=== PATIENT | female | born 2000 ===

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

== ENCOUNTER 2022-01-24 21:42 | Outpatient (CLI) | payer OTHER ==
[~2022-01-24 21:42] MED LIST: CYCL5TAB PO
[2022-01-24 22:50] VITALS: BP 126/78
[2022-01-24 23:31] LABS: HEMOGLOBIN 11.7 g/dl (12.0-15.5); MEAN CORPUSCULAR HEMOGLOBIN 30.5 pg (27.0-33.0); MEAN CORPUSCULAR HGB CONC 34.4 g/dl (32.0-36.5); MEAN CORPUSCULAR VOLUME 88.5 fl (80.0-96.0); PLATELET COUNT, AUTOMATED 172 10^3/uL (150-450); RED BLOOD COUNT 3.84 10^6/uL (4.00-5.40); WHITE BLOOD COUNT 7.4 10^3/uL (4.0-10.0)
[2022-01-24 23:59] LABS: CREATININE,RANDOM URINE 46.9 MG/DL; TOTAL PROTEIN,RANDOM URINE 14.3 MG/DL (0.0-12.0)
[2022-01-25 00:01] LABS: ALBUMIN 2.8 GM/DL (3.2-5.2); ALT/SGPT 27 U/L (12-78); BILIRUBIN,TOTAL 0.2 MG/DL (0.2-1.0); BLOOD UREA NITROGEN 12 MG/DL (7-18); CALCIUM LEVEL 9.6 MG/DL (8.5-10.1); CARBON DIOXIDE LEVEL 23 MEQ/L (21-32); CHLORIDE LEVEL 105 MEQ/L (98-107); CREATININE FOR GFR 0.68 MG/DL (0.55-1.30); GLUCOSE, FASTING 90 MG/DL (70-100); POTASSIUM SERUM 3.8 MEQ/L (3.5-5.1); SODIUM LEVEL 137 MEQ/L (136-145); TOTAL PROTEIN 6.5 GM/DL (6.4-8.2)
[2022-01-25 00:02] VITALS: BP 132/68
== END 2022-01-25 01:25 | disposition home or self-care (01) ==
LOC: M LDO 21:42
PROVIDERS: ATTEND Obstetrics & Gynecology
DX: O26.893 Other specified pregnancy related conditions, third trimester (principal); R10.2 Pelvic and perineal pain; O34.219 Maternal care for unspecified type scar from previous cesarean delivery; Z87.59 Personal history of other complications of pregnancy, childbirth and the puerperium; Z3A.35 35 weeks gestation of pregnancy
CPT/HCPCS: 59025; 76815; 76819; 76820; 76857; 80053; 82570; 84156; 85027; G0463

== ENCOUNTER → 2022-02-08 | Outpatient (CLI) | payer OTHER ==
[~2022-02-08] MED LIST changes: +ACET500P3 PO; +ASPI81CH33 PO; +PRENTAB9 PO
== END ==
LOC: M RAD 09:09
PROVIDERS: ATTEND Obstetrics & Gynecology
DX: O36.8130 Decreased fetal movements, third trimester, not applicable or unspecified (principal); Z3A.38 38 weeks gestation of pregnancy

== ENCOUNTER → 2022-02-08 | Outpatient (CLI) | payer OTHER ==
[~2022-02-08] MED LIST changes: -ACET500P3 PO; -ASPI81CH33 PO; -PRENTAB9 PO
== END ==
LOC: M LDO 11:02
PROVIDERS: ATTEND Registered Nurse
DX: O47.1 False labor at or after 37 completed weeks of gestation (principal); Z3A.38 38 weeks gestation of pregnancy; O34.219 Maternal care for unspecified type scar from previous cesarean delivery; Z87.59 Personal history of other complications of pregnancy, childbirth and the puerperium
CPT/HCPCS: 59025; G0463

== ENCOUNTER 2022-02-15 07:53 | Inpatient (IN) | payer OTHER ==
[~2022-02-15] VITALS: Ht 167.6 cm; Wt 84.3 kg
[2022-02-15] VITALS (8 sets, daily range): BP systolic 109–121; BP diastolic 58–79
[2022-02-15] MEDS ORDERED: ACET500P3 PO (08:20)
[2022-02-15] MEDS ORDERED: PRENTAB9 PO (08:20)
[2022-02-15] MEDS ORDERED: ASPI81CH33 PO (08:20)
[2022-02-15] MEDS ORDERED: LR 1,000 ML IV ONE (09:00)
[2022-02-15] MEDS ORDERED: OXYTOCIN DRIP 30 UNITS in IV 1 EA IV PRN (10:55)
[2022-02-15] MEDS ORDERED: ceFAZolin SOD 2 GM in IV 1 EA IV ONE (11:25)
[2022-02-15] MEDS ORDERED: BICITRA 30ML SOLN UDC PO ONE (11:25)
[2022-02-15 12:14] LABS: HEMATOCRIT 39.3 % (36.0-47.0); HEMOGLOBIN 13.4 g/dl (12.0-15.5); MEAN CORPUSCULAR HEMOGLOBIN 30.3 pg (27.0-33.0); MEAN CORPUSCULAR HGB CONC 34.1 g/dl (32.0-36.5); MEAN CORPUSCULAR VOLUME 88.9 fl (80.0-96.0); PLATELET COUNT, AUTOMATED 175 10^3/uL (150-450); RED BLOOD COUNT 4.42 10^6/uL (4.00-5.40); WHITE BLOOD COUNT 7.6 10^3/uL (4.0-10.0)
[2022-02-15] MEDS ORDERED: BUPIVACAINE HCL 0.25% 10ML VIAL As Ordered ONE (13:10)
[2022-02-15] MEDS ORDERED: OXYTOCIN INJ 10 UNITS/ML VIAL (J2590) As Ordered ONE (13:18)
[2022-02-15] MEDS ORDERED: MORPHINE PRES-FREE INJ 10 MG/10 ML VIAL As Ordered ONE (13:18)
[2022-02-15] MEDS ORDERED: PHENYLephrine 500MCG 5ML (100MCG/ML) SYRINGE As Ordered ONE (13:18)
[2022-02-15 13:48] LABS: CORD GAS ABE V -1.3; CORD GAS HCO3 V 26.3 MEQ/L; CORD GAS O2 SAT V 55.3 %; CORD GAS PCO2 V 54.6 mmHg; CORD GAS PH V 7.301 UNITS; CORD GAS PO2 V 23.7 mmHg; CORD GAS SBC V 22.2 MEQ/L
[2022-02-15] MEDS ORDERED: KETOROLAC 60MG 2ML VIAL As Ordered ONE (13:59)
[2022-02-15] MEDS ORDERED: ONDANSETRON 4MG 2ML VIAL As Ordered ONE (13:59)
[2022-02-15] MEDS ORDERED: MEPERIDINE INJ 25 MG/ML VIAL (J2175) IV PRN (14:25)
[2022-02-15] MEDS ORDERED: diphenhydrAMINE 50MG/ML VIAL (J1200) IV PRN (14:25)
[2022-02-15] MEDS ORDERED: **NOTE PATIENT COMMENT** MISC XX SCH (14:25)
[2022-02-15] MEDS ORDERED: fentaNYL 100 MCG/2 ML INJECTION IV PRN (14:25)
[2022-02-15] MEDS: SLF 3 ML SYR IV SCH ×2 (14:25→22:25)
[2022-02-15] MEDS ORDERED: NALOXONE INJ 0.4MG/1ML VIAL (J2310 PER 1MG) IV PRN ×2 (14:25)
[2022-02-15] MEDS ORDERED: ONDANSETRON 4MG 2ML VIAL IV PRN ×2 (14:25→14:35)
[2022-02-15] MEDS ORDERED: METOCLOPRAMIDE INJ 10MG/2ML VIAL (J2765 PER 1) IV PRN (14:25)
[2022-02-15] MEDS ORDERED: HYDROMORPHONE HCL 0.5 MG/ 0.5 ML SYRINGE (J1170 PER 1) IV PRN (14:25)
[2022-02-15] MEDS ORDERED: oxyCODONE 5MG TAB PO PRN (14:25)
[2022-02-15] MEDS ORDERED: OXYTOCIN 30 UNITS IN 0.9% NaCl 500ML IV BAG (J2590) As Ordered ONE (14:28)
[2022-02-15] MEDS ORDERED: ACETAMINOPHEN 500 MG TAB PO PRN (14:35)
[2022-02-15] MEDS ORDERED: METHYLERGONOVINE MALEATE 0.2 MG/ML VIAL (J2210) IM PRN (14:35)
[2022-02-15] MEDS ORDERED: MORPHINE 2 MG/ML 1ML VIAL IV PRN (14:35)
[2022-02-15] MEDS ORDERED: SIMETHICONE 80MG CHEW TAB PO PRN (14:35)
[2022-02-15] MEDS ORDERED: METHYLERGONOVINE MALEATE 0.2 MG TAB PO PRN (14:35)
[2022-02-15] MEDS ORDERED: ACETAMINOPHEN TAB 650MG DOSE (2X325MG) PO PRN (14:35)
[2022-02-15] MEDS ORDERED: RHOGAM 300 MCG (1500 IU) INJ (J2790) IM SCH (14:35)
[2022-02-15] MEDS: LR 1,000 ML IV SCH (15:30)
[2022-02-15] MEDS ORDERED: OXYTOCIN DRIP 30 UNITS in IV 1 EA IV SCH (15:30)
[2022-02-15] MEDS ORDERED: BUPIVACAINE HCL 0.25% 10ML VIAL SC ONE (15:30)
[2022-02-15] MEDS: KETOROLAC 30 MG/ML 1ML VIAL IV SCH (19:59)
[2022-02-15] MEDS ORDERED: ENOXAPARIN 40MG/0.4ML SYRINGE (J1650 PER 10MG) SC SCH (22:00)
[2022-02-15] MEDS: DOCUSATE SODIUM 100MG CAPSULE PO SCH (22:09)
[2022-02-16] VITALS (7 sets, daily range): BP systolic 104–156; BP diastolic 53–77
[2022-02-16] MEDS: KETOROLAC 30 MG/ML 1ML VIAL IV SCH ×2 (01:53→09:21)
[2022-02-16] MEDS: LR 1,000 ML IV SCH ×2 (03:01→18:05)
[2022-02-16] MEDS: SLF 3 ML SYR IV SCH (05:53)
[2022-02-16 07:20] LABS: HEMATOCRIT 32.5 % (36.0-47.0); MEAN CORPUSCULAR HEMOGLOBIN 30.5 pg (27.0-33.0); MEAN CORPUSCULAR HGB CONC 33.2 g/dl (32.0-36.5); MEAN CORPUSCULAR VOLUME 91.8 fl (80.0-96.0); PLATELET COUNT, AUTOMATED 142 10^3/uL (150-450); RED BLOOD COUNT 3.54 10^6/uL (4.00-5.40); WHITE BLOOD COUNT 8.3 10^3/uL (4.0-10.0)
[2022-02-16 07:23] LABS: HEMOGLOBIN 10.8 g/dl (12.0-15.5)
[2022-02-16] MEDS ORDERED: PRENATAL VITAMINS CHEWABLE TABLET PO SCH (09:00)
[2022-02-16] MEDS: DOCUSATE SODIUM 100MG CAPSULE PO SCH ×2 (09:22→21:00)
[2022-02-16] MEDS ORDERED: IBUPROFEN 800 MG TAB PO SCH (16:00)
[2022-02-16] MEDS: IBUPROFEN 800 MG TAB PO SCH (20:57)
[2022-02-17 02:18] VITALS: BP 116/73
[2022-02-17 06:15] VITALS: BP 124/81
[2022-02-17] MEDS ORDERED: MEASLES,MUMPS,RUBELLA VACCINE INJ (MMR-II) (90707) SC.IMMUN ONE (09:00)
[2022-02-17] MEDS: DOCUSATE SODIUM 100MG CAPSULE PO SCH (10:12)
[2022-02-17] MEDS: IBUPROFEN 800 MG TAB PO SCH (10:12)
== END 2022-02-17 12:35 | disposition home or self-care (01) | DRG 773 ==
LOC: M LDO 07:53 → M LDI 11:15 → M OBS 17:07
PROVIDERS: ADMIT Obstetrics & Gynecology; ATTEND Obstetrics & Gynecology
PROC: 10D00Z1 Extraction of Products of Conception, Low, Open Approach (ICD-10-PCS; principal; 2022-02-15 13:19)
DX: O34.211 Maternal care for low transverse scar from previous cesarean delivery (principal); Z3A.39 39 weeks gestation of pregnancy; Z37.0 Single live birth